=== PATIENT | male | born 1975 | race Caucasian/White ===

== ENCOUNTER 2016-12-14 06:20 | Emergency (ER) | payer MEDICAID ==
[2016-12-14 06:21] VITALS: BMI 22.9
== END 2016-12-14 06:25 | disposition left against medical advice (07) ==
LOC: ED 06:20
DX: Z02.89 Encounter for other administrative examinations (principal); H57.8 Other specified disorders of eye and adnexa

== ENCOUNTER 2016-12-16 00:51 | Emergency (ER) | payer MEDICAID ==
[2016-12-16 00:52] VITALS: BMI 22.9
[2016-12-16 01:01] VITALS: BP 116/67; PULSE 80; RESP 16; TEMP 97.9; O2SAT 96
--- NOTE | 2016-12-16 01:11 | ED PDOC ---
Arrival/HPI - General Chief Complaint: Lower Extremity Problem/Injury Time Seen by Provider: 12/16/16 00:58 - History of Present Illness Narrative History of Present Illness (Text): 12/16/16 01:08 41yo M comes to the Emergency department after playing basketball, states that when he went to take off for a shot he felt a "pop" in his left ankle, located in the bottom part of his heel, and has been unable to bear weight since the incident. States the pain is too intense to place any pressure on his heel, and used his own crutches to come into the Emergency department. Has no Past medical history to his knowledge, takes no medicines, allergy to amoxicillin ( rash), never had adverse event with anesthesia. hypertension runs in family. stopped smoking 7 years ago. denies all other drugs. (Lit De León) Past Medical History - Past History Past History: No Previous - Past Medical History Past Medical History: No Previous - Gastrointestinal Hx Gastrointestinal Disorders: Yes Hx Gall Bladder Disease: Yes - Psychiatric Hx Depression: No Hx Emotional Abuse: No Hx Physical Abuse: No Hx Substance Use: No - Past Surgical History Past Surgical History: No Previous - Surgical History Hx Orthopedic Surgery: Yes (multiple) Other/Comment: skull,heam shoulder,hema ankles,r knee mcl - Anesthesia Hx Anesthesia: Yes Hx Anesthesia Reactions: No Hx Malignant Hyperthermia: No - Suicidal Assessment Feels Threatened In Home Enviroment: No Family/Social History - Physician Review Nursing Documentation Reviewed: Yes Family/Social History: No Known Family HX Smoking Status: Former Smoker Hx Alcohol Use: No Hx Substance Use: No Hx Substance Use Treatment: No Allergies/Home Meds Allergies/Adverse Reactions: Allergies amoxicillin Allergy (Verified 12/16/16 01:01) ANAPHYLAXIS Home Medications: Home Meds Medication Instructions Recorded Confirmed No Known Home Med 12/16/16 12/16/16 Review of Systems - Review of Systems Constitutional: absent: Fatigue Eyes: absent: Vision Changes Respiratory: absent: SOB Cardiovascular: Normal. absent: Chest Pain Gastrointestinal: absent: Abdominal Pain Genitourinary Male: absent: Dysuria, Frequency Musculoskeletal: Joint Swelling (left ankle/pain). absent: Arthralgias, Back Pain Skin: absent: Rash Neurological: absent: Headache, Dizziness Endocrine: absent: Diaphoresis Hemo/Lymphatic: absent: Adenopathy Psychiatric: absent: Anxiety Physical Exam Temperature: Afebrile Blood Pressure: Normal Pulse: Regular Respiratory Rate: Normal Appearance: Positive for: Well-Appearing, Non-Toxic Mental Status: Positive for: Alert and Oriented X 3 - Systems Exam Head: Present: Atraumatic, Normocephalic Pupils: Present: PERRL Extroacular Muscles: Present: EOMI Conjunctiva: Present: Normal Neck: Present: Normal Range of Motion. No: Meningeal Signs Respiratory/Chest: Present: Clear to Auscultation, Good Air Exchange. No: Respiratory Distress Cardiovascular: Present: Regular Rate and Rhythm, Normal S1, S2. No: Murmurs Abdomen: Present: Normal Bowel Sounds. No: Tenderness, Distention Back: Present: Normal Inspection. No: CVA Tenderness Upper Extremity: Present: Normal Inspection. No: Cyanosis, Edema Lower Extremity: Present: Normal Inspection, NORMAL PULSES, Other (crane test negative however foot does not pronate extremely well when compared to other side ). No: Edema, CALF TENDERNESS, Cyanosis (pain in the left heel) Neurological: Present: GCS=15, CN II-XII Intact Skin: Present: Warm, Dry Psychiatric: Present: Alert, Oriented x 3, Normal Insight Vital Signs Temp Pulse Resp BP Pulse Ox 12/16/16 01:01 97.9 F 80 16 116/67 96 Medical Decision Making ED Course and Treatment: Impression: Pt seen and evaluated with medical coding manager. Pt presented for left ankle pain s/ p ankle injury while playing basketball. Aware and agree with HPI, clinical findings, plan, and management. Plan: -- XR Left Ankle -- XR Left Heel -- Toradol -- Reassess and disposition (Felix Lobo) 12/16/16 01:11 DD: Ankle Sprain vs Achilles tendonitis/tear vs heel spur L ankle X-ray Toradol Dispo and reassess 12/16/16 02:11 X-Rays interp by me Old fx present distal tibia; no acute fractures, no inflammation will give air cast ortho f/u RICE; rest ice compress elevate Patient came with crutches; advised to be non weight bearing for the time being patient is stable for d/c as per Dr. Lobo. (Lit De León) - RAD Interpretation Radiology Orders: 12/16/16 01:07 ANKLE LEFT 3 VIEWS ROUTINE [RAD] Stat 12/16/16 01:14 HEEL LEFT [RAD] Stat - Medication Orders Current Medication Orders: Discontinued Medications Ketorolac Tromethamine (Toradol) 60 mg IM STAT STA Stop: 12/16/16 01:08 Last Admin: 12/16/16 01:27 Dose: 60 mg MAR Pain Assessment Document 12/16/16 01:27 SS (Rec: 12/16/16 01:28 SS [id number]) Pain Reassessment Is this a pain reassessment? No Sleep Is patient sleeping during reassessment? No Presence of Pain Presence of Pain Yes Location Left, Right or Bilateral Left Pain Location Body Site Foot Description Description Sharp Intensity of Pain at present 10 IM Administration Charges Document 12/16/16 01:27 SS (Rec: 12/16/16 01:28 SS [id number]) Injection Site MAR Injection Site Left Deltoid Charges for Administration # of IM Administrations 1 Disposition/Present on Arrival - Present on Arrival Any Indicators Present on Arrival: No History of DVT/PE: No History of Uncontrolled Diabetes: No Urinary Catheter: No History of Decub. Ulcer: No History Surgical Site Infection Following: None - Disposition Have Diagnosis and Disposition been Completed?: Yes Disposition Time: 02:13 Patient Plan: Discharge - Disposition Diagnosis: High ankle sprain Disposition: HOME/ ROUTINE Patient Problems: Current Active Problems Problem Status Onset High ankle sprain Acute Condition: FAIR Discharge Instructions (ExitCare): Ankle Sprain (ED) Additional Instructions: Please make sure to follow up with Orthopedics Please wear the air cast given, and use the crutches you came in with as well Ibuprofen, OTC for pain, will help with inflammation in the area Ice 3x per day for 15 minutes each, and elevate the leg while you ice It was a pleasure taking care of you, feel better. Referrals: Whitney Miller MD [Staff Provider] - Follow up with primary Forms: [employer] ([place])
--- NOTE | 2016-12-16 08:34 | RAD ---
PROCEDURE: Radiographs of the left calcaneus/hindfoot. HISTORY: fall COMPARISON: None available. TECHNIQUE: Frontal and lateral radiographs of the calcaneus. FINDINGS: No fracture or joint dislocation. No focal lesion. No calcaneal spur. Large os trigonum. Possible additional accessory ossifications centers present for example bordering the navicular-an os tibial externum. Left foot exam would be preferred for its assessment. Trace hammertoe like orientations. Dorsal talonavicular osseous hypertrophy. Anterior tibiotalar osseous hypertrophy. IMPRESSION: No fracture or dislocation.
--- NOTE | 2016-12-16 08:37 | RAD ---
PROCEDURE: Left Ankle Radiographs. HISTORY: pain COMPARISON: None FINDINGS: BONES: Well corticated ossifications and osseous hypertrophic changes border the medial malleolus. Combine old osseous avulsions versus unfused accessory ossification centers versus deltoid ligament old ossification are all considerations- combined pathologies of these considerations also possible. No acute pathology ; no acute fractures here suspect. Large os trigonum Tiny inferior calcaneal spur. Anterior tibiotalar osseous hypertrophy -mild. 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 Ankle mortise maintained. Talar dome intact SOFT TISSUES: Normal. OTHER FINDINGS: None. IMPRESSION: No acute fracture or dislocation. Osseous hypertrophic changes -mixed chronic pathology suggested bordering medial malleolus as detailed above
== END 2016-12-16 02:39 | disposition home or self-care (01) ==
LOC: ED 00:51
DX: S93.402A Sprain of unspecified ligament of left ankle, initial encounter (principal); Y93.67 Activity, basketball; Z87.891 Personal history of nicotine dependence
CPT/HCPCS: 73610; 73650; 96372; 99284; J1885